=== PATIENT | male | born 2000 | race American Indian/Alaskan Native ===

== ENCOUNTER 2021-08-06 12:49 | Emergency (ER) | payer OTHER ==
[2021-08-06] MEDS ORDERED: SODIUM CHLORIDE 0.9% 1000 ML 1,000 ML IV ONE (15:00)
--- NOTE | 2021-08-06 15:01 | Emergency Department Report ---
ED N/V/D HPI - General Chief complaint: Nausea/Vomiting/Diarrhea Stated complaint: DIARRHEA,POSS HEMORROID BLEEDING Time Seen by Provider: 08/06/21 14:43 Source: patient Mode of arrival: Ambulatory Limitations: No Limitations - History of Present Illness Initial comments: 1-year-old male with a past medical history of HIV, presents to the ER today with complaints of diarrhea. Patient states that he has been having diarrhea every day for the past 3 weeks. Patient states that he feels like he has been having diarrhea. However. States that the stool has been mainly watery, without any hematochezia, melena or mucus. He reports associated intermittent abdominal pain. He denies any nausea vomiting. He denies any fever or chills. He denies any UTI symptoms. Patient states that his symptoms started after eating [employer] but at the time he did not taste or smell bad. He denies any recent antibiotic use or recent travel out of the country. Patient states that he has been trying [id number] Imodium and Pepto-Bismol which he states "sl ows down" the diarrhea but it does not completely stop. He also reports unintentional weight loss of about 20 pounds over the past month. He states that he has been drinking lots of fluids. Patient states that he has not seen a primary care doctor nor his ID specialist or GI specialist since he has been having the symptoms. Today's the first time he has been seen for his symptoms. Patient states that he recently moved here from [place]. He currently does not have a PCP or infectious doctor locally. He states that he has been compliant with his Biktarvy. He states that he is viral load has been undetectable at but he is unsure of his last CD4 count. He denies any abdominal surgeries in the past. complaint: diarrhea -: week(s) (3) - Related Data Previous Rx's Medication Instructions Recorded Last Taken Type Diphenoxylate/Atropine [Lomotil] 1 tab PO Q4H PRN #12 tablet 08/06/21 Unknown Rx Allergies Allergy/AdvReac Type Severity Reaction Status Date / Time No Known Allergies Allergy Unverified 08/06/21 13:08 ED Review of Systems ROS: Stated complaint: DIARRHEA,POSS HEMORROID BLEEDING Other details as noted in HPI Comment: All other systems reviewed and negative Constitutional: denies: chills, fever Eyes: denies: eye pain, eye discharge, vision change ENT: denies: ear pain, throat pain, dental pain, hearing loss, epistaxis, congestion Respiratory: denies: cough, orthopnea, shortness of breath, SOB with exertion, SOB at rest, wheezing Cardiovascular: denies: chest pain, palpitations, dyspnea on exertion, edema, syncope, paroxysmal nocturnal dyspnea Gastrointestinal: abdominal pain, diarrhea. denies: nausea, vomiting, constipation, hematemesis, melena, hematochezia Genitourinary: denies: urgency, dysuria, frequency, hematuria, discharge, testicular pain, testicular mass Musculoskeletal: denies: back pain, joint swelling, arthralgia Skin: denies: rash, lesions Neurological: denies: headache, weakness, numbness, paresthesias, confusion, abnormal gait, vertigo Psychiatric: denies: anxiety, depression, auditory hallucinations, visual hallucinations, homicidal thoughts, suicidal thoughts Hematological/Lymphatic: denies: easy bleeding, easy bruising, swollen glands ED Past Medical Hx - Medications Home Medications: Home Medications Medication Instructions Recorded Confirmed Last Taken Type Diphenoxylate/Atropine [Lomotil] 1 tab PO Q4H PRN #12 tablet 08/06/21 Unknown R x ED Physical Exam - General Limitations: No Limitations General appearance: alert, in no apparent distress - Head Head exam: Present: atraumatic, normocephalic, normal inspection - Eye Eye exam: Present: normal appearance, PERRL, EOMI Pupils: Present: normal accommodation - ENT ENT exam: Present: normal exam, mucous membranes moist - Neck Neck exam: Present: normal inspection, full ROM - Respiratory Respiratory exam: Present: normal lung sounds bilaterally. Absent: respiratory distress, wheezes, rales, rhonchi - Cardiovascular Cardiovascular Exam: Present: regular rate, normal rhythm, normal heart sounds - GI/Abdominal GI/Abdominal exam: Present: soft. Absent: distended, tenderness, guarding, jesse ound, rigid - Neurological Exam Neurological exam: Present: alert, oriented X3, CN II-XII intact, normal gait - Psychiatric Psychiatric exam: Present: normal affect, normal mood ED Course Vital Signs 08/06/21 08/06/21 08/06/21 13:05 16:13 16:14 Temperature 98.6 F 97.9 F Pulse Rate 80 73 Respiratory 16 14 Rate Blood Pressure Blood Pressure 111/71 127/81 [Left] O2 Sat by Pulse 100 99 99 Oximetry 08/06/21 08/06/21 16:15 17:17 Temperature 97.4 F L Pulse Rate 73 64 Respiratory 14 18 Rate Blood Pressure 127/81 Blood Pressure [Left] O2 Sat by Pulse 99 94 Oximetry ED Medical Decision Making - Lab Data Result diagrams: 08/06/21 15:24 08/06/21 15:24 - Medical Decision Making 1709: Labs reviewed -- CBC shows mild anemia but otherwise unremarkable. CMP unremarkable and lipase normal. Patient did receive a bolus of IV fluids during stay. He has not reported any diarrhea during stay. Patient has a soft non tender abdomen. He Is not toxic or ill-appearing. He is neurologically intact with a normal gait. Discussed all lab results with patient. Exact cause of his diarrhea at this time unclear. But I did recommend that he follows up with GI specialist and also follow-up with ID specialist for further evaluation of his diarrhea including getting stool studies done and possible colonoscopy. In the meantime patient will be given prescription for Lomotil and encouraged to continue drinking lots of fluids. Patient expressed understanding of all instructions and agree with plan. Patient was stable at time of discharge. Critical care attestation.: If time is entered above; I have spent that time in minutes in the direct care of this critically ill patient, excluding procedure time. ED Disposition Clinical Impression: Diarrhea Disposition: 01 HOME / SELF CARE / HOMELESS Is pt being admited?: No Does the pt Need Aspirin: No Condition: Stable Instructions: Food Choices to Help Relieve Diarrhea, Adult, Diarrhea, Adult, [id number] Additional Instructions: Take the Lomotil as prescribed to see if it will help your diarrhea. I recommend that you continue drinking lots of fluids. Most importantly I recommend that she follow-up with the GI specialist and or your ID specialist for further evaluation of your diarrhea which would include stool studies and a colonoscopy. Return to the ER if your symptoms changes or worsens in any way. Prescriptions: Diphenoxylate/Atropine [Lomotil] 1 tab PO Q4H PRN #12 tablet PRN Reason: Diarrhea Referrals: [facility] [Provider Group] - 3-5 Days [place] infectious disease clinic [Other] - 3-5 Days [facility] [Provider Group] - 3-5 Days Forms: Work/School Release Form(ED) Time of Disposition: 17:02 Print Language: [place]
[2021-08-06 15:43] LABS: Basophils % (Auto) 0.2 % (0.0-1.8); Eosinophils % (Auto) 0.3 % (0.0-4.3); Hematocrit 33.4 % (35.5-45.6); Hemoglobin 10.6 gm/dl (11.8-15.2); Lymphocytes # (Auto) 2.6 K/mm3 (1.2-5.4); Lymphocytes % (Auto) 23.8 % (13.4-35.0); Mean Corpuscular HGB Conc 32 % (32-34); Mean Corpuscular Volume 82 fl (84-94); Monocytes # (Auto) 1.1 K/mm3 (0.0-0.8); Monocytes % (Auto) 9.8 % (0.0-7.3); Platelet Count 617 K/mm3 (140-440); Red Blood Count 4.06 M/mm3 (3.65-5.03); Red Cell Distribution Width 14.8 % (13.2-15.2)
[2021-08-06 16:14] VITALS: BP 127/81
[2021-08-06 16:34] LABS: Alanine Aminotransferase 8 units/L (7-56); Albumin 3.1 g/dL (3.9-5); Blood Urea Nitrogen 7 mg/dL (9-20); Calcium 8.6 mg/dL (8.4-10.2); Hemolysis Index 5
[2021-08-06 16:59] LABS: BUN/Creatinine Ratio 10
== END 2021-08-06 17:19 | disposition home or self-care (01) ==
LOC: ED 12:49
DX: R19.7 Diarrhea, unspecified (principal)
CPT/HCPCS: 36415; 80053; 83690; 83735; 85025; 96360; 99283; J7030